=== PATIENT | female | born 1955 | race American Indian/Alaskan Native ===

== ENCOUNTER 2021-07-02 14:55 | Inpatient (IN) | payer SELFPAY ==
[2021-07-02] MEDS ORDERED: dexAMETHasone 20 MG/5 ML VIAL IV ONE (16:46)
--- NOTE | 2021-07-02 17:05 | Emergency Department Report ---
HPI - General Chief Complaint: Nausea/Vomiting/Diarrhea Time Seen by Provider: 07/02/21 16:34 - HPI HPI: Room 36 Patient is a 65-year-old female present with a chief complaint of cough and shortness of breath. The patient states for the past 5 days she has had a cough occasionally productive of brown sputum and shortness of breath. Patient mitts to body aches and rhinorrhea. Patient denies nausea/vomiting. Patient admits to subjective fever and complains of weakness with decreased p.o. for the last 2 days secondary to poor appetite. The patient states she was not vaccinated against COVID ED Past Medical Hx - Past Medical History Hx Hypertension: Yes - Surgical History Past Surgical History?: No - Family History Family history: no significant - Social History Smoking Status: Former Smoker (None for over 20 years) Substance Use Type: None (Denies illicit drug use) - Medications Home Medications: Home Medications Medication Instructions Recorded Confirmed Last Taken Type Cetirizine HCl 10 mg PO BID 11/23/19 11/23/19 Unknown History Ibuprofen [Motrin] 800 mg PO BID 11/23/19 11/23/19 Unknown History Quetiapine Fumarate [SEROquel] 50 mg PO BID #60 tab 11/23/19 Unknown Rx amLODIPine 10 mg PO DAILY 11/23/19 11/23/19 Unknown History traZODone [Desyrel] 50 mg PO QHS #30 tab 11/23/19 Unknown Rx ED Review of Systems ROS: Stated complaint: ABD PAIN Other details as noted in HPI Constitutional: fever Eyes: denies: eye pain ENT: denies: throat pain Respiratory: cough, shortness of breath Cardiovascular: denies: chest pain Endocrine: no symptoms reported Gastrointestinal: denies: abdominal pain, nausea, vomiting Genitourinary: denies: dysuria Musculoskeletal: myalgia Neurological: denies: headache Physical Exam - Physical Exam Vital Signs: Vital Signs 07/02/21 16:10 Temperature 98 F Pulse Rate 71 Respiratory 24 Rate Blood Pressure 110/63 [Right] O2 Sat by Pulse 88 Oximetry Physical Exam: GENERAL: The patient is well-developed well-nourished female lying on stretcher using cell phone not appearing to be in acute distress. [] HEENT: Normocephalic. Atraumatic. Extraocular motions are intact. Patient has moist mucous membranes. NECK: Supple. Trachea CHEST/LUNGS: Clear to auscultation. There is no respiratory distress noted. HEART/CARDIOVASCULAR: Regular. There is no tachycardia. There is no gallop rub or murmur. ABDOMEN: Abdomen is soft, nontender. Patient has normal bowel sounds. There is no abdominal distention. SKIN: There is no rash. There is no edema. There is no diaphoresis. NEURO: The patient is awake, alert, and oriented. The patient is cooperative. The patient has no focal neurologic deficits. The patient has normal speech. GCS 15 MUSCULOSKELETAL: There is no evidence of acute injury. ED Course Vital Signs 07/02/21 16:10 Temperature 98 F Pulse Rate 71 Respiratory 24 Rate Blood Pressure 110/63 [Right] O2 Sat by Pulse 88 Oximetry ED Medical Decision Making - Lab Data Result diagrams: 07/02/21 17:03 07/02/21 17:03 Laboratory Tests 07/02/21 07/02/21 07/02/21 17:03 17:03 17:03 WBC 5.4 RBC 4.52 Hgb 13.5 Hct 40.6 MCV 90 MCH 30 MCHC 33 RDW 14.2 Plt Count 234 Lymph % (Auto) 21.2 [place] % (Auto) 5.4 Eos % (Auto) 0.0 Baso % (Auto) 0.6 Lymph # (Auto) 1.1 L [place] # (Auto) 0.3 Eos # (Auto) 0.0 Baso # (Auto) 0.0 Seg Neutrophils % 72.8 H Seg Neutrophils # 3.9 D-Dimer 574.72 H Sodium Potassium Chloride Carbon Dioxide Anion Gap BUN Creatinine Estimated GFR BUN/Creatinine Ratio Glucose Lactic Acid Calcium Total Bilirubin AST ALT Alkaline Phosphatase Lactate Dehydrogenase Total Creatine Kinase 360 H CK-MB (CK-2) < 1.0 CK-MB (CK-2) Rel Index 0.2 Troponin T C-Reactive Protein Total Protein Albumin Albumin/Globulin Ratio 07/02/21 07/02/21 17:03 17:03 WBC RBC Hgb Hct MCV MCH MCHC RDW Plt Count Lymph % (Auto) [place] % (Auto) Eos % (Auto) Baso % (Auto) Lymph # (Auto) [place] # (Auto) Eos # (Auto) Baso # (Auto) Seg Neutrophils % Seg Neutrophils # D-Dimer Sodium 136 L Potassium 3.2 L Chloride 99.4 Carbon Dioxide 19 L Anion Gap 21 BUN 20 H Creatinine 1.3 H Estimated GFR 50 BUN/Creatinine Ratio 15 Glucose 125 H Lactic Acid 1.10 Calcium 8.7 Total Bilirubin 0.40 AST 40 ALT 27 Alkaline Phosphatase 82 Lactate Dehydrogenase 452 H Total Creatine Kinase CK-MB (CK-2) CK-MB (CK-2) Rel Index Troponin T 0.012 C-Reactive Protein 8.70 H Total Protein 7.5 Albumin 3.9 Albumin/Globulin Ratio 1.1 - EKG Data -: EKG Interpreted by Me EKG shows normal: sinus rhythm Rate: normal (67 bpm) - EKG Data When compared to previous EKG there are: changes noted Interpretation: nonspecific ST-T wave daniel (T wave inversions in leads V3, V4, V5, V6. Biphasic T wave in lead III) - Radiology Data Radiology results: image reviewed (Chest x-ray) interpreted by me: Chest [id number] lower lobe patchy infiltrates. No pneumothorax - Differential Diagnosis COVID pneumonia, pneumonia, Critical care attestation.: If time is entered above; I have spent that time in minutes in the direct care of this critically ill patient, excluding procedure time. ED Disposition Clinical Impression: Suspected COVID-19 virus infection, Hypoxia Disposition: ADMITTED INPATIENT Is pt being admited?: Yes Does the pt Need Aspirin: No Condition: Fair Referrals: PRIMARY CARE, [Primary Care Provider] - 3-5 Days Time of Disposition: 18:01 (Hospitalist called (Dr. Raman))
[2021-07-02 17:28] LABS: Basophils % (Auto) 0.6 % (0.0-1.8); Hematocrit 40.6 % (30.3-42.9); Hemoglobin 13.5 gm/dl (10.1-14.3); Lymphocytes # (Auto) 1.1 K/mm3 (1.2-5.4); Lymphocytes % (Auto) 21.2 % (13.4-35.0); Mean Corpuscular HGB Conc 33 % (30-34); Mean Corpuscular Volume 90 fl (79-97); Monocytes # (Auto) 0.3 K/mm3 (0.0-0.8); Monocytes % (Auto) 5.4 % (0.0-7.3); Platelet Count 234 K/mm3 (140-440); Red Blood Count 4.52 M/mm3 (3.65-5.03); Red Cell Distribution Width 14.2 % (13.2-15.2)
--- NOTE | 2021-07-02 17:28 | XRay Report ---
CHEST 1 VIEW 07/02/2021 4:51 PM INDICATION / CLINICAL INFORMATION: Cough, shortness of breath, hypoxia. COMPARISON: 11/22/2019 FINDINGS: SUPPORT DEVICES: None. HEART / MEDIASTINUM: No significant abnormality. LUNGS / PLEURA: Pneumonia left mid zone and right base. No pneumothorax. ADDITIONAL FINDINGS: No significant additional findings. IMPRESSION: Bilateral pneumonia. Signer Name: Keith Pillai MD Signed: 07/02/2021 5:24 PM Workstation Name: [id number]
[2021-07-02 17:53] LABS: Creatine Kinase MB < 1.0 ng/mL (0.0-4.0)
[2021-07-02 17:54] LABS: Albumin 3.9 g/dL (3.9-5); C-Reactive Protein 8.7 mg/dL (0.00-1.30); Calcium 8.7 mg/dL (8.4-10.2)
[2021-07-02] MEDS ORDERED: POTASSIUM CHLORIDE ER 20 MEQ TAB PO ONE (18:00)
[2021-07-02 23:09] LABS: Bacteria,Urine 1+ /HPF (Negative); Bilirubin,Urine NEG (Negative); Blood,Urine SM (Negative); Color,Urine Amber (Yellow); Hyaline Casts,Urine 29 /LPF; Mucus,Urine 2+ /HPF
[2021-07-02 23:11] LABS: Protein,Urine >500 mg/dL (Negative)
--- NOTE | 2021-07-03 00:16 | History and Physical Report ---
History of Present Illness Date of examination: 07/02/21 Date of admission: 07/02/21 19:00 Chief complaint: Cough and shortness of breath for 5 days History of present illness: 55-year-old female with chief complaint of cough and shortness of breath for past 5 days. Patient has been having cough and shortness of breath for the last 5 days cough productive of mucoid to brown sputum. Patient also admits to body aches and runny nose. No nausea or vomiting. Patient also has Subjective fever and malaise and decreased p.o. intake for the last 2 days secondary to poor appetite. Patient is not vaccinated against COVID. No known exposure to any sick contacts. Patient is oxygen saturations were around 88% on room air in the emergency room. Improved with oxygen. - Past Medical History --Hypertension: Yes - Surgical History --Past Surgical History?: No - Family History --Family history: no significant - Social History --Smoking Status: Former Smoker (None for over 20 years) --Substance Use Type: None (Denies illicit drug use) - Medications Home Medications: Home Medications Medication Instructions Recorded Confirmed Last Taken Type Cetirizine HCl 10 mg PO BID 11/23/19 11/23/19 Unknown History Ibuprofen [Motrin] 800 mg PO BID 11/23/19 11/23/19 Unknown History Quetiapine Fumarate [SEROquel] 50 mg PO BID #60 tab 11/23/19 Unknown Rx amLODIPine 10 mg PO DAILY 11/23/19 11/23/19 Unknown History traZODone [Desyrel] 50 mg PO QHS #30 tab 11/23/19 Unknown Rx Review of Systems ROS: Stated complaint: ABD PAIN Other details as noted in HPI Constitutional: fever Eyes: denies: eye pain ENT: denies: throat pain Respiratory: cough, shortness of breath Cardiovascular: denies: chest pain Endocrine: no symptoms reported Gastrointestinal: denies: abdominal pain, nausea, vomiting Genitourinary: denies: dysuria Musculoskeletal: myalgia Neurological: denies: headache Medications and Allergies Allergies Allergy/AdvReac Type Severity Reaction Status Date / Time Penicillins Allergy Rash Verified 07/02/21 16:07 Home Medications Medication Instructions Recorded Confirmed Last Taken Type Cetirizine HCl 10 mg PO BID 11/23/19 11/23/19 Unknown History Ibuprofen [Motrin] 800 mg PO BID 11/23/19 11/23/19 Unknown History Quetiapine Fumarate [SEROquel] 50 mg PO BID #60 tab 11/23/19 Unknown Rx amLODIPine 10 mg PO DAILY 11/23/19 11/23/19 Unknown History traZODone [Desyrel] 50 mg PO QHS #30 tab 11/23/19 Unknown Rx Exam - Constitutional Vitals: Temp Pulse Resp BP Pulse Ox 98 F 71 20 137/77 97 07/02/21 16:10 07/02/21 22:15 07/02/21 22:15 07/02/21 22:15 07/02/21 22:15 General appearance: Present: mild distress, well-nourished - EENT Eyes: Present: PERRL ENT: hearing intact, clear oral mucosa - Neck Neck: Present: supple, normal ROM - Respiratory Respiratory effort: normal Respiratory: bilateral: CTA, rhonchi (Scattered) - Cardiovascular Heart rate: 78 Rhythm: regular Heart Sounds: Present: S1 & S2. Absent: rub, click - Extremities Extremities: no ischemia, pulses intact, pulses symmetrical, No edema Peripheral Pulses: within normal limits - Abdominal General gastrointestinal: Present: soft, non-tender, non-distended, normal bowel sounds Female genitourinary: Present: normal - Rectal Rectal Exam: deferred - Integumentary Integumentary: Present: clear, warm, dry - Musculoskeletal Musculoskeletal: gait normal, strength equal bilaterally - Psychiatric Psychiatric: appropriate mood/affect, intact judgment & insight - Neurologic Neurologic: CNII-XII intact, moves all extremities - Allied Health Allied health notes reviewed: nursing, case management HEART Score - HEART Score Troponin: Troponin T 0.012 ng/mL (0.00-0.029) 07/02/21 17:03 Results - Labs CBC & Chem 7: 07/02/21 17:03 07/03/21 00:52 Labs: Laboratory Last Values WBC 5.4 K/mm3 (4.5-11.0) 07/02/21 17:03 RBC 4.52 M/mm3 (3.65-5.03) 07/02/21 17:03 Hgb 13.5 gm/dl (10.1-14.3) 07/02/21 17:03 Hct 40.6 % (30.3-42.9) 07/02/21 17:03 MCV 90 fl (79-97) 07/02/21 17:03 MCH 30 pg (28-32) 07/02/21 17:03 MCHC 33 % (30-34) 07/02/21 17:03 RDW 14.2 % (13.2-15.2) 07/02/21 17:03 Plt Count 234 K/mm3 (140-440) 07/02/21 17:03 Lymph % (Auto) 21.2 % (13.4-35.0) 07/02/21 17:03 [place] % (Auto) 5.4 % (0.0-7.3) 07/02/21 17:03 Eos % (Auto) 0.0 % (0.0-4.3) 07/02/21 17:03 Baso % (Auto) 0.6 % (0.0-1.8) 07/02/21 17:03 Lymph # (Auto) 1.1 K/mm3 (1.2-5.4) L 07/02/21 17:03 [place] # (Auto) 0.3 K/mm3 (0.0-0.8) 07/02/21 17:03 Eos # (Auto) 0.0 K/mm3 (0.0-0.4) 07/02/21 17:03 Baso # (Auto) 0.0 K/mm3 (0.0-0.1) 07/02/21 17:03 Seg Neutrophils % 72.8 % (40.0-70.0) H 07/02/21 17:03 Seg Neutrophils # 3.9 K/mm3 (1.8-7.7) 07/02/21 17:03 D-Dimer 574.72 ng/mlDDU (0-234) H 07/02/21 17:03 Sodium 136 mmol/L (137-145) L 07/02/21 17:03 Potassium 3.2 mmol/L (3.6-5.0) L 07/02/21 17:03 Chloride 99.4 mmol/L (98-107) 07/02/21 17:03 Carbon Dioxide 19 mmol/L (22-30) L 07/02/21 17:03 Anion Gap 21 mmol/L 07/02/21 17:03 BUN 20 mg/dL (7-17) H 07/02/21 17:03 Creatinine 1.3 mg/dL (0.6-1.2) H 07/02/21 17:03 Estimated GFR 50 ml/min 07/02/21 17:03 BUN/Creatinine Ratio 15 % 07/02/21 17:03 Glucose 125 mg/dL (65-100) H 07/02/21 17:03 Lactic Acid 1.10 mmol/L (0.7-2.0) 07/02/21 17:03 Calcium 8.7 mg/dL (8.4-10.2) 07/02/21 17:03 Total Bilirubin 0.40 mg/dL (0.1-1.2) 07/02/21 17:03 AST 40 units/L (5-40) 07/02/21 17:03 ALT 27 units/L (7-56) 07/02/21 17:03 Alkaline Phosphatase 82 units/L (35-129) 07/02/21 17:03 Lactate Dehydrogenase 452 units/L (91-180) H 07/02/21 17:03 Total Creatine Kinase 360 units/L (30-135) H 07/02/21 17:03 CK-MB (CK-2) < 1.0 ng/mL (0.0-4.0) 07/02/21 17:03 CK-MB (CK-2) Rel Index 0.2 (0-4) 07/02/21 17:03 Troponin T 0.012 ng/mL (0.00-0.029) 07/02/21 17:03 C-Reactive Protein 8.70 mg/dL (0.00-1.30) H 07/02/21 17:03 Total Protein 7.5 g/dL (6.3-8.2) 07/02/21 17:03 Albumin 3.9 g/dL (3.9-5) 07/02/21 17:03 Albumin/Globulin Ratio 1.1 % 07/02/21 17:03 Urine Color [place] (Yellow) 07/02/21 22:35 Urine Turbidity Slightly-cloudy (Clear) 07/02/21 22:35 Urine pH 6.0 (5.0-7.0) 07/02/21 22:35 Ur Specific [place] 1.019 (1.003-1.030) 07/02/21 22:35 Urine Protein >500 mg/dL (Negative) 07/02/21 22:35 Urine Glucose (UA) Neg mg/dL (Negative) 07/02/21 22:35 Urine Ketones 20 mg/dL (Negative) 07/02/21 22:35 Urine Blood Sm (Negative) 07/02/21 22:35 Urine Nitrite Neg (Negative) 07/02/21 22:35 Urine Bilirubin Neg (Negative) 07/02/21 22:35 Urine Urobilinogen 2.0 mg/dL (<2.0) 07/02/21 22:35 Ur Leukocyte Esterase Sm (Negative) 07/02/21 22:35 Urine WBC (Auto) 50.0 /HPF (0.0-6.0) H 07/02/21 22:35 Urine RBC (Auto) 11.0 /HPF (0.0-6.0) 07/02/21 22:35 U Epithel Cells (Auto) 46.0 /HPF (0-13.0) H 07/02/21 22:35 Urine Bacteria (Auto) 1+ /HPF (Negative) 07/02/21 22:35 Hyaline Casts 29 /LPF 07/02/21 22:35 Urine Mucus 2+ /HPF 07/02/21 22:35 Short CBC 07/02/21 Range/Units 17:03 WBC 5.4 (4.5-11.0) K/mm3 Hgb 13.5 (10.1-14.3) gm/dl Hct 40.6 (30.3-42.9) % Plt Count 234 (140-440) K/mm3 BMP 07/02/21 07/03/21 17:03 00:52 Sodium 136 L 138 Potassium 3.2 L 4.5 D Chloride 99.4 102.9 Carbon Dioxide 19 L 19 L BUN 20 H 24 H Creatinine 1.3 H 1.4 H Glucose 125 H 181 H Calcium 8.7 8.6 Cardiac Enzymes 07/02/21 07/02/21 Range/Units 17:03 17:03 Total Creatine Kinase 360 H (30-135) units/L CK-MB (CK-2) < 1.0 (0.0-4.0) ng/mL Troponin T 0.012 (0.00-0.029) ng/mL Liver Function 07/02/21 Range/Units 17:03 Total Bilirubin 0.40 (0.1-1.2) mg/dL AST 40 (5-40) units/L ALT 27 (7-56) units/L Alkaline Phosphatase 82 (35-129) units/L Albumin 3.9 (3.9-5) g/dL Urine 07/02/21 Range/Units 22:35 Urine Color [place] (Yellow) Urine pH 6.0 (5.0-7.0) Ur Specific [place] 1.019 (1.003-1.030) Urine Protein >500 (Negative) mg/dL Urine Glucose (UA) Neg (Negative) mg/dL Microbiology: Microbiology 07/02/21 17:22 Peripheral/Venous Blood Culture - Preliminary Culture in Progress 07/02/21 17:03 Peripheral/Venous Blood Culture - Preliminary Culture in Progress - Imaging and Cardiology Chest x-ray: report reviewed Imaging and Cardiology: Chest x-ray Bilateral pneumonia Assessment and Plan Advance Directives: Yes (Full code) VTE prophylaxis?: Chemical Plan of care discussed with patient/family: Yes - Patient Problems (1) Acute respiratory failure with hypoxemia Current Visit: Yes Status: Acute Plan to address problem: Patient is hypoxic on room air Improved with oxygen supplementation Adjust oxygen requirements as necessary Rule out COVID-pneumonia (2) Systemic inflammatory response syndrome Current Visit: Yes Status: Acute Plan to address problem: All inflammatory markers including D-dimer, ferritin, CRP and LDH are elevated Clinical picture consistent with systemic inflammatory response syndrome (3) Bilateral pneumonia Current Visit: Yes Status: Acute Plan to address problem: Treat as community-acquired pneumonia IV ceftriaxone and IV Zithromax IV Decadron 8 mg every 24 (4) Suspected COVID-19 virus infection Current Visit: Yes Status: Acute Plan to address problem: Coronavirus PCR in a.m. IV Decadron for now ID consult if necessary (5) Hypertension Current Visit: Yes Status: Chronic Qualifiers: Hypertension type: primary hypertension Qualified Code(s): I10 - Essential (primary) hypertension Plan to address problem: Continue amlodipine and adjust medications as necessary (6) Schizophrenia Current Visit: No Status: Chronic Qualifiers: Schizophrenia type: unspecified Qualified Code(s): F20.9 - Schizophrenia, unspecified Plan to address problem: Continue Seroquel (7) Hypokalemia Current Visit: Yes Status: Acute Plan to address problem: Supplemented recheck potassium level (8) LILLIE (acute kidney injury) Current Visit: Yes Status: Acute Plan to address problem: IV fluids for 12 to 18 hours Vasomotor nephropathy (9) DVT prophylaxis Current Visit: Yes Status: Acute Plan to address problem: On anticoagulation and GI prophylaxis (10) Advance care planning Current Visit: Yes Status: Acute Plan to address problem: Disease education conducted, care plan discussed, diagnosis discussed, prognosis discussed. Patient is full code. Patient acknowledges understanding and agreement with care plan +30 minutes
[2021-07-03] MEDS ORDERED: ONDANSETRON 4 MG/2 ML INJ IV PRN (00:33)
[2021-07-03] MEDS ORDERED: ACETAMINOPHEN 325 MG TAB PO PRN (00:33)
[2021-07-03] MEDS ORDERED: oxyCODONE /ACETAMINOPHEN 5-325MG TAB PO PRN (00:34)
[2021-07-03] MEDS ORDERED: METOCLOPRAMIDE 10 MG/2 ML INJ IV PRN (00:34)
[2021-07-03] MEDS ORDERED: SODIUM CHLORIDE 0.9% 1000 ML 1,000 ML IV SCH ×2 (00:45→07:30)
[2021-07-03 01:33] LABS: Calcium 8.6 mg/dL (8.4-10.2)
[2021-07-03] MEDS: cefTRIAXone/NS 2 GM/100 ML 2 GM/100 ML BAG IV SCH ×2 (02:22→11:46)
[2021-07-03] MEDS: AZITHROMYCIN/NS 500 MG/250 ML 500 MG/250 ML BAG IV SCH ×2 (03:46→10:44)
[2021-07-03] MEDS ORDERED: NON-FORMULARY EACH (Amlodipine 10 MG) PO SCH (10:00)
[2021-07-03] MEDS ORDERED: NON-FORMULARY EACH (Quetiapine Fumarate [Seroquel] 50 MG Tablet) PO SCH (10:00)
[2021-07-03] MEDS ORDERED: NON-FORMULARY EACH (Cetirizine Hcl 10 MG) PO SCH (10:00)
[2021-07-03] MEDS: CETIRIZINE 10 MG TAB PO SCH (10:35)
[2021-07-03] MEDS: dexAMETHasone 4 MG/ML VIAL IV SCH (10:43)
[2021-07-03] MEDS: QUEtiapine 25 MG TAB PO SCH (10:44)
[2021-07-03] MEDS: FAMOTIDINE 20 MG TAB PO SCH (10:44)
[2021-07-03] MEDS: amLODIPine 10 MG TAB PO SCH (10:44)
[2021-07-03] MEDS: ENOXAPARIN 40 MG/0.4 ML INJ SUB-Q SCH (10:45)
--- NOTE | 2021-07-03 18:25 | Progress Note ---
Assessment and Plan Assessment and plan: --COVID-19 positive/positive salcedo PCR test Contact and respiratory isolation Patient is on 2 L of nasal cannula oxygen Inflammatory markers, steroid and no remdesivir due to LILLIE Consult ID --PUI/high suspicion for COVID-19 Isolation precautions Salcedo PCR test requested Continue oxygen support - Acute respiratory failure with hypoxemia Current Visit: Yes Status: Acute Patient is hypoxic on room air Improved with oxygen supplementation Adjust oxygen requirements as necessary Rule out COVID-pneumonia --Systemic inflammatory response syndrome Current Visit: Yes Status: Acute All inflammatory markers including D-dimer, ferritin, CRP and LDH are elevated Clinical picture consistent with systemic inflammatory response syndrome --bilateral pneumonia Current Visit: Yes Status: Acute Treat as community-acquired pneumonia IV ceftriaxone and IV Zithromax IV Decadron 8 mg every 24 -- Suspected COVID-19 virus infection Current Visit: Yes Status: Acute Coronavirus PCR in a.m. IV Decadron for now ID consult if necessary -- Hypertension Current Visit: Yes Status: Chronic Continue amlodipine and adjust medications as necessary --Schizophrenia Current Visit: No Status: Chronic Continue Seroquel --Hypokalemia Current Visit: Yes Status: Acute Supplemented recheck potassium level --LILLIE (acute kidney injury) Current Visit: Yes Status: Acute IV fluids for 12 to 18 hours Vasomotor nephropathy --Obesity; BMI 33.8 Current Visit: Yes Status: Chronic Advised dietary modification, exercise as tolerated Weight reduction when medically stable Patient verbalized understanding - DVT prophylaxis Current Visit: Yes Status: Acute On anticoagulation and GI prophylaxis Monitor patient and adjust management as needed Plan of care reviewed with the patient and her nurse History Interval history: I have seen and examined the patient in ER awaiting bed assignment Patient's chart and medications reviewed Isolation precautions and PPE protocols strictly followed Patient is PUI salcedo PCR test is sent Patient feels short of breath, obese, Hospitalist Physical - Constitutional Vitals: Temp Pulse Resp BP Pulse Ox 98 F 61 24 116/71 92 07/02/21 16:10 07/03/21 11:01 07/03/21 17:31 07/03/21 17:31 07/03/21 17:31 General appearance: Present: mild distress, well-nourished - EENT Eyes: Present: PERRL, EOM intact - Neck Neck: Present: supple, normal ROM - Respiratory Respiratory effort: normal Respiratory: bilateral: diminished, negative: rales, rhonchi, wheezing - Cardiovascular Rhythm: regular Heart Sounds: Present: S1 & S2 - Extremities Extremities: no ischemia, No edema - Abdominal General gastrointestinal: soft, non-tender, normal bowel sounds - Integumentary Integumentary: Present: clear, warm - Psychiatric Psychiatric: appropriate mood/affect, cooperative - Neurologic Neurologic: CNII-XII intact, moves all extremities HEART Score - HEART Score Troponin: Troponin T 0.012 ng/mL (0.00-0.029) 07/02/21 17:03 Results - Labs CBC & Chem 7: 07/02/21 17:03 07/03/21 00:52 Labs: Laboratory Last Values WBC 5.4 K/mm3 (4.5-11.0) 07/02/21 17:03 RBC 4.52 M/mm3 (3.65-5.03) 07/02/21 17:03 Hgb 13.5 gm/dl (10.1-14.3) 07/02/21 17:03 Hct 40.6 % (30.3-42.9) 07/02/21 17:03 MCV 90 fl (79-97) 07/02/21 17:03 MCH 30 pg (28-32) 07/02/21 17:03 MCHC 33 % (30-34) 07/02/21 17:03 RDW 14.2 % (13.2-15.2) 07/02/21 17:03 Plt Count 234 K/mm3 (140-440) 07/02/21 17:03 Lymph % (Auto) 21.2 % (13.4-35.0) 07/02/21 17:03 [place] % (Auto) 5.4 % (0.0-7.3) 07/02/21 17:03 Eos % (Auto) 0.0 % (0.0-4.3) 07/02/21 17:03 Baso % (Auto) 0.6 % (0.0-1.8) 07/02/21 17:03 Lymph # (Auto) 1.1 K/mm3 (1.2-5.4) L 07/02/21 17:03 [place] # (Auto) 0.3 K/mm3 (0.0-0.8) 07/02/21 17:03 Eos # (Auto) 0.0 K/mm3 (0.0-0.4) 07/02/21 17:03 Baso # (Auto) 0.0 K/mm3 (0.0-0.1) 07/02/21 17:03 Seg Neutrophils % 72.8 % (40.0-70.0) H 07/02/21 17:03 Seg Neutrophils # 3.9 K/mm3 (1.8-7.7) 07/02/21 17:03 D-Dimer 574.72 ng/mlDDU (0-234) H 07/02/21 17:03 Sodium 138 mmol/L (137-145) 07/03/21 00:52 Potassium 4.5 mmol/L (3.6-5.0) D 07/03/21 00:52 Chloride 102.9 mmol/L (98-107) 07/03/21 00:52 Carbon Dioxide 19 mmol/L (22-30) L 07/03/21 00:52 Anion Gap 21 mmol/L 07/03/21 00:52 BUN 24 mg/dL (7-17) H 07/03/21 00:52 Creatinine 1.4 mg/dL (0.6-1.2) H 07/03/21 00:52 Estimated GFR 46 ml/min 07/03/21 00:52 BUN/Creatinine Ratio 17 % 07/03/21 00:52 Glucose 181 mg/dL (65-100) H 07/03/21 00:52 Lactic Acid 1.10 mmol/L (0.7-2.0) 07/02/21 17:03 Calcium 8.6 mg/dL (8.4-10.2) 07/03/21 00:52 Total Bilirubin 0.40 mg/dL (0.1-1.2) 07/02/21 17:03 AST 40 units/L (5-40) 07/02/21 17:03 ALT 27 units/L (7-56) 07/02/21 17:03 Alkaline Phosphatase 82 units/L (35-129) 07/02/21 17:03 Lactate Dehydrogenase 452 units/L (91-180) H 07/02/21 17:03 Total Creatine Kinase 360 units/L (30-135) H 07/02/21 17:03 CK-MB (CK-2) < 1.0 ng/mL (0.0-4.0) 07/02/21 17:03 CK-MB (CK-2) Rel Index 0.2 (0-4) 07/02/21 17:03 Troponin T 0.012 ng/mL (0.00-0.029) 07/02/21 17:03 C-Reactive Protein 8.70 mg/dL (0.00-1.30) H 07/02/21 17:03 Total Protein 7.5 g/dL (6.3-8.2) 07/02/21 17:03 Albumin 3.9 g/dL (3.9-5) 07/02/21 17:03 Albumin/Globulin Ratio 1.1 % 07/02/21 17:03 Procalcitonin 0.09 ng/mL (<0.15) 07/02/21 17:03 Urine Color [place] (Yellow) 07/02/21 22:35 Urine Turbidity Slightly-cloudy (Clear) 07/02/21 22:35 Urine pH 6.0 (5.0-7.0) 07/02/21 22:35 Ur Specific [place] 1.019 (1.003-1.030) 07/02/21 22:35 Urine Protein >500 mg/dL (Negative) 07/02/21 22:35 Urine Glucose (UA) Neg mg/dL (Negative) 07/02/21 22: Urine Ketones 20 mg/dL (Negative) 07/02/21 22:35 Urine Blood Sm (Negative) 07/02/21 22:35 Urine Nitrite Neg (Negative) 07/02/21 22: Urine Bilirubin Neg (Negative) 07/02/21 22:35 Urine Urobilinogen 2.0 mg/dL (<2.0) 07/02/21 22:35 Ur Leukocyte Esterase Sm (Negative) 07/02/21 22:35 Urine WBC (Auto) 50.0 /HPF (0.0-6.0) H 07/02/21 22:35 Urine RBC (Auto) 11.0 /HPF (0.0-6.0) 07/02/21 22:35 U Epithel Cells (Auto) 46.0 /HPF (0-13.0) H 07/02/21 22:35 Urine Bacteria (Auto) 1+ /HPF (Negative) 01/09/22 22:35 Hyaline Casts 29 /LPF 07/02/21 22:35 Urine Mucus 2+ /HPF 07/02/21 22:35 Coronavirus (PCR) Positive (Negative) A 07/03/21 10:21 Microbiology: Microbiology 07/02/21 17:22 Peripheral/Venous Blood Culture - Preliminary Culture in Progress 07/02/21 17:03 Peripheral/Venous Blood Culture - Preliminary Culture in Progress Active Medications - Current Medications Current Medications: Generic Name Dose Route Start Last Admin Trade Name Freq PRN Reason Stop Dose Admin Acetaminophen 650 mg 07/03/21 00:33 Acetaminophen 325 Mg Tab PO Q4H PRN Pain MILD(1-3)/Fever >100.5/CARLSON Amlodipine Besylate 10 mg 07/03/21 10:00 07/03/21 10:44 Amlodipine 10 Mg Tab PO 10 mg DAILY LUPILLO Administration Azithromycin 500 mg 07/04/21 10:00 Azithromycin 250 Mg Tab PO 07/06/21 10:01 QDAY LUPILLO Protocol Cetirizine HCl 10 mg 07/03/21 10:00 07/03/21 10:35 Cetirizine 10 Mg Tab PO 10 mg BID LUPILLO Administration Dexamethasone 8 mg 07/03/21 10:00 07/03/21 10:43 Dexamethasone 4 Mg/Ml Vial IV 8 mg Q24HR LUPILLO Administration Enoxaparin Sodium 40 mg 07/03/21 10:00 07/03/21 10:45 Enoxaparin 40 Mg/0.4 Ml Inj SUB-Q 40 mg QDAY LUPILLO Administration Famotidine 20 mg 07/03/21 10:00 07/03/21 10:44 Famotidine 20 Mg Tab PO 20 mg BID LUPILOL Administration Sodium Chloride 1,000 mls @ 75 mls/hr 07/03/21 07:30 Nacl 0.9% 1000 Ml IV 07/04/21 04:00 DIRECT LUPILLO Ceftriaxone Sodium 2 gm in 100 mls @ 200 mls/hr 07/04/21 02:00 Rocephin/Ns 2 Gm/100 Ml IV Q24H LUPILLO Protocol Metoclopramide HCl 10 mg 07/03/21 00:34 Metoclopramide 10 Mg/2 Ml Inj IV Q6H PRN Nausea And Vomiting Ondansetron HCl 4 mg 07/03/21 00:33 Ondansetron 4 Mg/2 Ml Inj IV Q8H PRN Nausea And Vomiting Oxycodone/Acetaminophen 1 tab 07/03/21 00:34 Oxycodone /Acetaminophen 5-325mg Tab PO Q6H PRN Pain, Moderate (4-6) Quetiapine Fumarate 50 mg 07/03/21 10:00 07/03/21 10:44 Quetiapine 25 Mg Tab PO 50 mg BID LUPILLO Administration Sodium Chloride 10 ml 07/03/21 10:00 07/03/21 10:45 Sodium Chloride 0.9% 10 Ml Flush Syringe IV 10 ml BID LUPILLO Administration Sodium Chloride 10 ml 07/03/21 00:33 Sodium Chloride 0.9% 10 Ml Flush Syringe IV PRN PRN LINE FLUSH Trazodone HCl 50 mg 07/03/21 22:00 Trazodone 50 Mg Tab PO QHS LUPILLO
[2021-07-03] MEDS ORDERED: guaiFENesin DM 200/20 MG ORAL LIQD 10 ML PO PRN (18:28)
[2021-07-04] MEDS: traZODone 50 MG TAB PO SCH ×2 (04:36→23:56)
[2021-07-04] MEDS: CETIRIZINE 10 MG TAB PO SCH ×3 (04:36→23:55)
[2021-07-04] MEDS: FAMOTIDINE 20 MG TAB PO SCH ×3 (04:36→23:55)
[2021-07-04] MEDS: QUEtiapine 25 MG TAB PO SCH ×3 (04:37→23:56)
[2021-07-04 05:28] LABS: Basophils % (Auto) 0.4 % (0.0-1.8); Hematocrit 39.7 % (30.3-42.9); Lymphocytes # (Auto) 0.9 K/mm3 (1.2-5.4); Mean Corpuscular HGB Conc 33 % (30-34); Mean Corpuscular Volume 90 fl (79-97); Monocytes # (Auto) 0.5 K/mm3 (0.0-0.8); Monocytes % (Auto) 5.2 % (0.0-7.3); Platelet Count 262 K/mm3 (140-440); Red Blood Count 4.41 M/mm3 (3.65-5.03); Red Cell Distribution Width 14.3 % (13.2-15.2)
[2021-07-04 05:53] LABS: Alanine Aminotransferase 20 units/L (7-56); Albumin 3.6 g/dL (3.9-5); BUN/Creatinine Ratio 19; Blood Urea Nitrogen 19 mg/dL (7-17); Calcium 9.2 mg/dL (8.4-10.2); Hemolysis Index 4
[2021-07-04] MEDS: AZITHROMYCIN 250 MG TAB PO SCH (10:29)
[2021-07-04] MEDS: dexAMETHasone 4 MG/ML VIAL IV SCH (10:29)
[2021-07-04] MEDS: ENOXAPARIN 40 MG/0.4 ML INJ SUB-Q SCH (10:30)
[2021-07-04] MEDS: amLODIPine 10 MG TAB PO SCH (10:30)
--- NOTE | 2021-07-04 14:06 | Progress Note ---
Assessment and Plan Assessment and plan: --COVID-19 positive/positive salcedo PCR test Contact and respiratory isolation Patient is on 2 L of nasal cannula oxygen Inflammatory markers, steroid and no remdesivir due to LILLIE Consult ID --PUI/high suspicion for COVID-19 Isolation precautions Salcedo PCR test requested Continue oxygen support - Acute respiratory failure with hypoxemia Current Visit: Yes Status: Acute Patient is hypoxic on room air Improved with oxygen supplementation Adjust oxygen requirements as necessary Rule out COVID-pneumonia --Systemic inflammatory response syndrome Current Visit: Yes Status: Acute All inflammatory markers including D-dimer, ferritin, CRP and LDH are elevated Clinical picture consistent with systemic inflammatory response syndrome --bilateral pneumonia Current Visit: Yes Status: Acute Treat as community-acquired pneumonia IV ceftriaxone and IV Zithromax IV Decadron 8 mg every 24 -- Suspected COVID-19 virus infection Current Visit: Yes Status: Acute Coronavirus PCR in a.m. IV Decadron for now ID consult if necessary -- Hypertension Current Visit: Yes Status: Chronic Continue amlodipine and adjust medications as necessary --Schizophrenia Current Visit: No Status: Chronic Continue Seroquel --Hypokalemia Current Visit: Yes Status: Acute Supplemented recheck potassium level --LILLIE (acute kidney injury) Current Visit: Yes Status: Acute IV fluids for 12 to 18 hours Vasomotor nephropathy --Obesity; BMI 33.8 Current Visit: Yes Status: Chronic Advised dietary modification, exercise as tolerated Weight reduction when medically stable Patient verbalized understanding - DVT prophylaxis Current Visit: Yes Status: Acute On anticoagulation and GI prophylaxis Monitor patient and adjust management as needed Plan of care reviewed with the patient and her nurse 07/04/2021; patient is on 2 L of nasal cannula oxygen On steroids. No remdesivir patient has acute kidney injury, obese BMI 33.8 Wean as tolerated, home oxygen evaluation, prone positioning History Interval history: I have seen and examined the patient at the bedside this morning Isolation precautions and PPE protocol strictly followed per CDC guidelines Patient complains of mild shortness of breath Hospitalist Physical - Constitutional Vitals: Temp Pulse Resp BP Pulse Ox 98 F 74 12 122/64 89 07/02/21 16:10 07/04/21 10:30 07/03/21 23:31 07/04/21 10:30 07/04/21 06:45 General appearance: Present: mild distress, well-nourished - EENT Eyes: Present: PERRL, EOM intact - Neck Neck: Present: supple, normal ROM - Respiratory Respiratory effort: normal Respiratory: bilateral: diminished, rhonchi, negative: rales, wheezing - Cardiovascular Rhythm: regular Heart Sounds: Present: S1 & S2 - Extremities Extremities: no ischemia, No edema - Abdominal General gastrointestinal: soft, non-tender, non-distended, normal bowel sounds - Integumentary Integumentary: Present: clear, warm - Psychiatric Psychiatric: appropriate mood/affect, cooperative - Neurologic Neurologic: CNII-XII intact, moves all extremities HEART Score - HEART Score Troponin: Troponin T 0.012 ng/mL (0.00-0.029) 07/02/21 17:03 Results - Labs CBC & Chem 7: 07/04/21 04:52 07/04/21 04:52 Labs: Laboratory Last Values WBC 10.1 K/mm3 (4.5-11.0) 07/04/21 04:52 RBC 4.41 M/mm3 (3.65-5.03) 07/04/21 04:52 Hgb 13.0 gm/dl (10.1-14.3) 07/04/21 04:52 Hct 39.7 % (30.3-42.9) 07/04/21 04:52 MCV 90 fl (79-97) 07/04/21 04:52 MCH 30 pg (28-32) 07/04/21 04:52 MCHC 33 % (30-34) 07/04/21 04:52 RDW 14.3 % (13.2-15.2) 07/04/21 04:52 Plt Count 262 K/mm3 (140-440) 07/04/21 04:52 Lymph % (Auto) 9.0 % (13.4-35.0) L 07/04/21 04:52 [place] % (Auto) 5.2 % (0.0-7.3) 07/04/21 04:52 Eos % (Auto) 0.0 % (0.0-4.3) 07/04/21 04:52 Baso % (Auto) 0.4 % (0.0-1.8) 07/04/21 04:52 Lymph # (Auto) 0.9 K/mm3 (1.2-5.4) L 07/04/21 04:52 [place] # (Auto) 0.5 K/mm3 (0.0-0.8) 07/04/21 04:52 Eos # (Auto) 0.0 K/mm3 (0.0-0.4) 07/04/21 04:52 Baso # (Auto) 0.0 K/mm3 (0.0-0.1) 07/04/21 04:52 Seg Neutrophils % 85.4 % (40.0-70.0) H 07/04/21 04:52 Seg Neutrophils # 8.6 K/mm3 (1.8-7.7) H 07/04/21 04:52 D-Dimer 308.32 ng/mlDDU (0-234) H 07/04/21 04:52 Sodium 143 mmol/L (137-145) 07/04/21 04:52 Potassium 3.5 mmol/L (3.6-5.0) L D 07/04/21 04:52 Chloride 106.5 mmol/L (98-107) 07/04/21 04:52 Carbon Dioxide 22 mmol/L (22-30) 07/04/21 04:52 Anion Gap 18 mmol/L 07/04/21 04:52 BUN 19 mg/dL (7-17) H 07/04/21 04:52 Creatinine 1.0 mg/dL (0.6-1.2) 07/04/21 04:52 Estimated GFR > 60 ml/min 07/04/21 04:52 BUN/Creatinine Ratio 19 % 07/04/21 04:52 Glucose 116 mg/dL (65-100) H 07/04/21 04:52 Lactic Acid 1.10 mmol/L (0.7-2.0) 07/02/21 17:03 Calcium 9.2 mg/dL (8.4-10.2) 07/04/21 04:52 Ferritin 877.5 ng/mL (10.0-200.0) H 07/04/21 04:52 Total Bilirubin 0.30 mg/dL (0.1-1.2) 07/04/21 04:52 AST 27 units/L (5-40) 07/04/21 04:52 ALT 20 units/L (7-56) 07/04/21 04:52 Alkaline Phosphatase 71 units/L (35-129) 07/04/21 04:52 Lactate Dehydrogenase 408 units/L (91-180) H 07/04/21 04:52 Total Creatine Kinase 360 units/L (30-135) H 07/02/21 17:03 CK-MB (CK-2) < 1.0 ng/mL (0.0-4.0) 07/02/21 17:03 CK-MB (CK-2) Rel Index 0.2 (0-4) 07/02/21 17:03 Troponin T 0.012 ng/mL (0.00-0.029) 07/02/21 17:03 C-Reactive Protein 3.10 mg/dL (0.00-1.30) H 07/04/21 04:52 Total Protein 6.8 g/dL (6.3-8.2) 07/04/21 04:52 Albumin 3.6 g/dL (3.9-5) L 07/04/21 04:52 Albumin/Globulin Ratio 1.1 % 07/04/21 04:52 Procalcitonin 0.09 ng/mL (<0.15) 07/02/21 17:03 Urine Color [place] (Yellow) 07/02/21 22:35 Urine Turbidity Slightly-cloudy (Clear) 07/02/21 22:35 Urine pH 6.0 (5.0-7.0) 07/02/21 22:35 Ur Specific [place] 1.019 (1.003-1.030) 07/02/21 22:35 Urine Protein >500 mg/dL (Negative) 07/02/21 22:35 Urine Glucose (UA) Neg mg/dL (Negative) 07/02/21 22:35 Urine Ketones 20 mg/dL (Negative) 07/02/21 22:35 Urine Blood Sm (Negative) 07/02/21 22:35 Urine Nitrite Neg (Negative) 07/02/21 22:35 Urine Bilirubin Neg (Negative) 07/02/21 22:35 Urine Urobilinogen 2.0 mg/dL (<2.0) 07/02/21 22:35 Ur Leukocyte Esterase Sm (Negative) 07/02/21 22:35 Urine WBC (Auto) 50.0 /HPF (0.0-6.0) H 07/02/21 22:35 Urine RBC (Auto) 11.0 /HPF (0.0-6.0) 07/02/21 22:35 U Epithel Cells (Auto) 46.0 /HPF (0-13.0) H 07/02/21 22:35 Urine Bacteria (Auto) 1+ /HPF (Negative) 07/02/21 22:35 Hyaline Casts 29 /LPF 07/02/21 22:35 Urine Mucus 2+ /HPF 07/02/21 22:35 Coronavirus (PCR) Positive (Negative) A 07/03/21 10:21 Microbiology: Microbiology 07/02/21 22:35 Urine,Clean Catch Urine Culture - Preliminary NO GROWTH AFTER 24 HOURS 07/02/21 17:22 Peripheral/Venous Blood Culture - Preliminary NO GROWTH AFTER 24 HOURS 07/02/21 17:03 Peripheral/Venous Blood Culture - Preliminary NO GROWTH AFTER 24 HOURS Active Medications - Current Medications Current Medications: Generic Name Dose Route Start Last Admin Trade Name Freq PRN Reason Stop Dose Admin Acetaminophen 650 mg 07/03/21 00:33 Acetaminophen 325 Mg Tab PO Q4H PRN Pain MILD(1-3)/Fever >100.5/CARLSON Amlodipine Besylate 10 mg 07/03/21 10:00 07/04/21 10:30 Amlodipine 10 Mg Tab PO 10 mg DAILY LUPILLO Administration Azithromycin 500 mg 07/04/21 10:00 07/04/21 10:29 Azithromycin 250 Mg Tab PO 07/06/21 10:01 500 mg QDAY LUPILLO Administration Protocol Cetirizine HCl 10 mg 07/03/21 10:00 07/04/21 10:30 Cetirizine 10 Mg Tab PO 10 mg BID LUPILLO Administration Dexamethasone 8 mg 07/03/21 10:00 07/04/21 10:29 Dexamethasone 4 Mg/Ml Vial IV 07/11/21 10:01 8 mg Q24HR LUPILLO Administration Enoxaparin Sodium 40 mg 07/03/21 10:00 07/04/21 10:30 Enoxaparin 40 Mg/0.4 Ml Inj SUB-Q 40 mg QDAY LUPILLO Administration Famotidine 20 mg 07/03/21 10:00 07/04/21 10:30 Famotidine 20 Mg Tab PO 20 mg BID LUPILLO Administration Guaifenesin 10 ml 07/03/21 18:28 Guaifenesin Dm 200/20 Mg Oral Liqd 10 Ml PO Q4H PRN Cough Ceftriaxone Sodium 2 gm in 100 mls @ 200 mls/hr 07/04/21 02:00 Rocephin/Ns 2 Gm/100 Ml IV 07/07/21 02:29 Q24H LUPILLO Protocol Metoclopramide HCl 10 mg 07/03/21 00:34 Metoclopramide 10 Mg/2 Ml Inj IV Q6H PRN Nausea And Vomiting Ondansetron HCl 4 mg 07/03/21 00:33 Ondansetron 4 Mg/2 Ml Inj IV Q8H PRN Nausea And Vomiting Oxycodone/Acetaminophen 1 tab 07/03/21 00:34 Oxycodone /Acetaminophen 5-325mg Tab PO Q6H PRN Pain, Moderate (4-6) Quetiapine Fumarate 50 mg 07/03/21 10:00 07/04/21 10:29 Quetiapine 25 Mg Tab PO 50 mg BID LUPILLO Administration Sodium Chloride 10 ml 07/03/21 10:00 07/04/21 10:31 Sodium Chloride 0.9% 10 Ml Flush Syringe IV 10 ml BID LUPILLO Administration Sodium Chloride 10 ml 07/03/21 00:33 Sodium Chloride 0.9% 10 Ml Flush Syringe IV PRN PRN LINE FLUSH Trazodone HCl 50 mg 07/03/21 22:00 07/04/21 04:36 Trazodone 50 Mg Tab PO Not Given QHS LUPILLO
[2021-07-04] MEDS: cefTRIAXone/NS 2 GM/100 ML 2 GM/100 ML BAG IV SCH (23:53)
[2021-07-05] MEDS: cefTRIAXone/NS 2 GM/100 ML 2 GM/100 ML BAG IV SCH (02:56)
--- NOTE | 2021-07-05 08:53 | Electrocardiograph Report ---
[facility] Test Date: 2021-07-02 Test Time: 17:57:34 Pat Name: AJAY MANCUSO Department: Room: A367 Gender: F Med Dir: KYAW : 1955 Requested By: LLOYD ESTRADA Order Number: [id number] Reading MD: Srikanth Rose Measurements Intervals Newborn Rate: 67 P: 51 MA: 190 QRS: 3 QRSD: 81 T: 205 QT: 421 QTc: 447 Interpretive Statements Sinus rhythm Probable left atrial enlargement Consider anteroseptal infarct Nonspecific T wave abnormality No previous ECG available for comparison Electronically Signed On 07-05-2021 8:53:10 EST by Srikanth Rose
--- NOTE | 2021-07-05 08:56 | Progress Note ---
Assessment and Plan Assessment and plan: --COVID-19 positive/positive salcedo PCR test Contact and respiratory isolation Patient is on 2 L of nasal cannula oxygen Inflammatory markers, steroid and no remdesivir due to LILLIE Consult ID --PUI/high suspicion for COVID-19 Isolation precautions Salcedo PCR test requested Continue oxygen support - Acute respiratory failure with hypoxemia Current Visit: Yes Status: Acute Patient is hypoxic on room air Improved with oxygen supplementation Adjust oxygen requirements as necessary Rule out COVID-pneumonia --Systemic inflammatory response syndrome Current Visit: Yes Status: Acute All inflammatory markers including D-dimer, ferritin, CRP and LDH are elevated Clinical picture consistent with systemic inflammatory response syndrome --bilateral pneumonia Current Visit: Yes Status: Acute Treat as community-acquired pneumonia IV ceftriaxone and IV Zithromax IV Decadron 8 mg every 24 Procalcitonin is normal level DC IV antibiotics -- Suspected COVID-19 virus infection Current Visit: Yes Status: Acute Coronavirus PCR in a.m. IV Decadron for now ID consult if necessary -- Hypertension Current Visit: Yes Status: Chronic Continue amlodipine and adjust medications as necessary --Schizophrenia Current Visit: No Status: Chronic Continue Seroquel --Hypokalemia Current Visit: Yes Status: Acute Supplemented recheck potassium level --LILLIE (acute kidney injury) Current Visit: Yes Status: Acute IV fluids for 12 to 18 hours Vasomotor nephropathy --Obesity; BMI 33.8 Current Visit: Yes Status: Chronic Advised dietary modification, exercise as tolerated Weight reduction when medically stable Patient verbalized understanding - DVT prophylaxis Current Visit: Yes Status: Acute On anticoagulation and GI prophylaxis Monitor patient and adjust management as needed Plan of care reviewed with the patient and her nurse 07/04/2021; patient is on 2 L of nasal cannula oxygen On steroids. No remdesivir patient has acute kidney injury, obese BMI 33.8 Wean as tolerated, home oxygen evaluation, prone positioning 07/05/2021; walk test, possible discharge home tomorrow With home oxygen if needed, ambulate as tolerated History Interval history: I have seen and examined the patient at the bedside Isolation precautions PPE protocols followed per COVID-19 CDC guidelines Patient feels slightly better on 2 L of nasal cannula oxygen No new complaints Hospitalist Physical - Constitutional Vitals: Temp Pulse Resp BP Pulse Ox 100.0 F H 64 18 150/71 95 07/05/21 05:18 07/05/21 05:27 07/05/21 05:18 07/05/21 05:18 07/05/21 05:27 General appearance: Present: mild distress, well-nourished - EENT Eyes: Present: PERRL, EOM intact - Neck Neck: Present: supple, normal ROM - Respiratory Respiratory effort: normal Respiratory: bilateral: diminished, negative: rales, rhonchi, wheezing - Cardiovascular Rhythm: regular Heart Sounds: Present: S1 & S2 - Extremities Extremities: no ischemia, No edema - Abdominal General gastrointestinal: soft, non-tender, non-distended, normal bowel sounds - Integumentary Integumentary: Present: clear, warm - Psychiatric Psychiatric: appropriate mood/affect, cooperative - Neurologic Neurologic: CNII-XII intact, moves all extremities HEART Score - HEART Score Troponin: Troponin T 0.012 ng/mL (0.00-0.029) 07/02/21 17:03 Results - Labs CBC & Chem 7: 07/04/21 04:52 07/04/21 04:52 Labs: Laboratory Last Values WBC 10.1 K/mm3 (4.5-11.0) 07/04/21 04:52 RBC 4.41 M/mm3 (3.65-5.03) 07/04/21 04:52 Hgb 13.0 gm/dl (10.1-14.3) 07/04/21 04:52 Hct 39.7 % (30.3-42.9) 07/04/21 04:52 MCV 90 fl (79-97) 07/04/21 04:52 MCH 30 pg (28-32) 07/04/21 04:52 MCHC 33 % (30-34) 07/04/21 04:52 RDW 14.3 % (13.2-15.2) 07/04/21 04:52 Plt Count 262 K/mm3 (140-440) 07/04/21 04:52 Lymph % (Auto) 9.0 % (13.4-35.0) L 07/04/21 04:52 [place] % (Auto) 5.2 % (0.0-7.3) 07/04/21 04:52 Eos % (Auto) 0.0 % (0.0-4.3) 07/04/21 04:52 Baso % (Auto) 0.4 % (0.0-1.8) 07/04/21 04:52 Lymph # (Auto) 0.9 K/mm3 (1.2-5.4) L 07/04/21 04:52 [place] # (Auto) 0.5 K/mm3 (0.0-0.8) 07/04/21 04:52 Eos # (Auto) 0.0 K/mm3 (0.0-0.4) 07/04/21 04:52 Baso # (Auto) 0.0 K/mm3 (0.0-0.1) 07/04/21 04:52 Seg Neutrophils % 85.4 % (40.0-70.0) H 07/04/21 04:52 Seg Neutrophils # 8.6 K/mm3 (1.8-7.7) H 07/04/21 04:52 D-Dimer 308.32 ng/mlDDU (0-234) H 07/04/21 04:52 Sodium 143 mmol/L (137-145) 07/04/21 04:52 Potassium 3.5 mmol/L (3.6-5.0) L D 07/04/21 04:52 Chloride 106.5 mmol/L (98-107) 07/04/21 04:52 Carbon Dioxide 22 mmol/L (22-30) 07/04/21 04:52 Anion Gap 18 mmol/L 07/04/21 04:52 BUN 19 mg/dL (7-17) H 07/04/21 04:52 Creatinine 1.0 mg/dL (0.6-1.2) 07/04/21 04:52 Estimated GFR > 60 ml/min 07/04/21 04:52 BUN/Creatinine Ratio 19 % 07/04/21 04:52 Glucose 116 mg/dL (65-100) H 07/04/21 04:52 Lactic Acid 1.10 mmol/L (0.7-2.0) 07/02/21 17:03 Calcium 9.2 mg/dL (8.4-10.2) 07/04/21 04:52 Ferritin 877.5 ng/mL (10.0-200.0) H 07/04/21 04:52 Total Bilirubin 0.30 mg/dL (0.1-1.2) 07/04/21 04:52 AST 27 units/L (5-40) 07/04/21 04:52 ALT 20 units/L (7-56) 07/04/21 04:52 Alkaline Phosphatase 71 units/L (35-129) 07/04/21 04:52 Lactate Dehydrogenase 408 units/L (91-180) H 07/04/21 04:52 Total Creatine Kinase 360 units/L (30-135) H 07/02/21 17:03 CK-MB (CK-2) < 1.0 ng/mL (0.0-4.0) 07/02/21 17:03 CK-MB (CK-2) Rel Index 0.2 (0-4) 07/02/21 17:03 Troponin T 0.012 ng/mL (0.00-0.029) 07/02/21 17:03 C-Reactive Protein 3.10 mg/dL (0.00-1.30) H 07/04/21 04:52 Total Protein 6.8 g/dL (6.3-8.2) 07/04/21 04:52 Albumin 3.6 g/dL (3.9-5) L 07/04/21 04:52 Albumin/Globulin Ratio 1.1 % 07/04/21 04:52 Procalcitonin 0.09 ng/mL (<0.15) 07/02/21 17:03 Urine Color [place] (Yellow) 07/02/21 22:35 Urine Turbidity Slightly-cloudy (Clear) 07/02/21 22:35 Urine pH 6.0 (5.0-7.0) 07/02/21 22:35 Ur Specific [place] 1.019 (1.003-1.030) 07/02/21 22:35 Urine Protein >500 mg/dL (Negative) 07/02/21 22:35 Urine Glucose (UA) Neg mg/dL (Negative) 07/02/21 22:35 Urine Ketones 20 mg/dL (Negative) 07/02/21 22:35 Urine Blood Sm (Negative) 07/02/21 22:35 Urine Nitrite Neg (Negative) 07/02/21 22:35 Urine Bilirubin Neg (Negative) 07/02/21 22:35 Urine Urobilinogen 2.0 mg/dL (<2.0) 07/02/21 22:35 Ur Leukocyte Esterase Sm (Negative) 07/02/21 22:35 Urine WBC (Auto) 50.0 /HPF (0.0-6.0) H 07/02/21 22:35 Urine RBC (Auto) 11.0 /HPF (0.0-6.0) 07/02/21 22:35 U Epithel Cells (Auto) 46.0 /HPF (0-13.0) H 07/02/21 22:35 Urine Bacteria (Auto) 1+ /HPF (Negative) 07/02/21 22:35 Hyaline Casts 29 /LPF 07/02/21 22:35 Urine Mucus 2+ /HPF 07/02/21 22:35 Coronavirus (PCR) Positive (Negative) A 07/03/21 10:21 Microbiology: Microbiology 07/02/21 17:22 Peripheral/Venous Blood Culture - Preliminary NO GROWTH AFTER 48 HOURS 07/02/21 17:03 Peripheral/Venous Blood Culture - Preliminary NO GROWTH AFTER 48 HOURS 07/02/21 22:35 Urine,Clean Catch Urine Culture - Preliminary NO GROWTH AFTER 24 HOURS [place]/IV: Voiding Method Toilet Active Medications - Current Medications Current Medications: Generic Name Dose Route Start Last Admin Trade Name Freq PRN Reason Stop Dose Admin Acetaminophen 650 mg 07/03/21 00:33 Acetaminophen 325 Mg Tab PO Q4H PRN Pain MILD(1-3)/Fever >100.5/CARLSON Amlodipine Besylate 10 mg 07/03/21 10:00 07/04/21 10:30 Amlodipine 10 Mg Tab PO 10 mg DAILY LUPILLO Administration Azithromycin 500 mg 07/04/21 10:00 07/04/21 10:29 Azithromycin 250 Mg Tab PO 07/06/21 10:01 500 mg QDAY LUPILLO Administration Protocol Cetirizine HCl 10 mg 07/03/21 10:00 07/04/21 23:55 Cetirizine 10 Mg Tab PO 10 mg BID LUPILLO Administration Dexamethasone 8 mg 07/03/21 10:00 07/04/21 10:29 Dexamethasone 4 Mg/Ml Vial IV 07/11/21 10:01 8 mg Q24HR LUPILLO Administration Enoxaparin Sodium 40 mg 07/03/21 10:00 07/04/21 10:30 Enoxaparin 40 Mg/0.4 Ml Inj SUB-Q 40 mg QDAY LUPILLO Administration Famotidine 20 mg 07/03/21 10:00 07/04/21 23:55 Famotidine 20 Mg Tab PO 20 mg BID LUPILLO Administration Guaifenesin 10 ml 07/03/21 18:28 Guaifenesin Dm 200/20 Mg Oral Liqd 10 Ml PO Q4H PRN Cough Ceftriaxone Sodium 2 gm in 100 mls @ 200 mls/hr 07/04/21 02:00 07/05/21 02:56 Rocephin/Ns 2 Gm/100 Ml IV 07/07/21 02:29 200 mls/hr Q24H LUPILLO Administration Protocol Metoclopramide HCl 10 mg 07/03/21 00:34 Metoclopramide 10 Mg/2 Ml Inj IV Q6H PRN Nausea And Vomiting Ondansetron HCl 4 mg 07/03/21 00:33 Ondansetron 4 Mg/2 Ml Inj IV Q8H PRN Nausea And Vomiting Oxycodone/Acetaminophen 1 tab 07/03/21 00:34 Oxycodone /Acetaminophen 5-325mg Tab PO Q6H PRN Pain, Moderate (4-6) Quetiapine Fumarate 50 mg 07/03/21 10:00 07/04/21 23:56 Quetiapine 25 Mg Tab PO 50 mg BID LUPILLO Administration Sodium Chloride 10 ml 07/03/21 10:00 07/04/21 23:56 Sodium Chloride 0.9% 10 Ml Flush Syringe IV 10 ml BID LUPILLO Administration Sodium Chloride 10 ml 07/03/21 00:33 Sodium Chloride 0.9% 10 Ml Flush Syringe IV PRN PRN LINE FLUSH Trazodone HCl 50 mg 07/03/21 22:00 07/04/21 23:56 Trazodone 50 Mg Tab PO 50 mg QHS LUPILLO Administration
[2021-07-05] MEDS: dexAMETHasone 4 MG/ML VIAL IV SCH (11:48)
[2021-07-05] MEDS: ENOXAPARIN 40 MG/0.4 ML INJ SUB-Q SCH (11:48)
[2021-07-05] MEDS: amLODIPine 10 MG TAB PO SCH (11:49)
[2021-07-05] MEDS: AZITHROMYCIN 250 MG TAB PO SCH (11:49)
[2021-07-05] MEDS: CETIRIZINE 10 MG TAB PO SCH ×2 (11:49→22:31)
[2021-07-05] MEDS: QUEtiapine 25 MG TAB PO SCH ×2 (11:49→22:31)
[2021-07-05] MEDS: FAMOTIDINE 20 MG TAB PO SCH ×2 (11:50→22:31)
[2021-07-05] MEDS: traZODone 50 MG TAB PO SCH (22:31)
--- NOTE | 2021-07-06 08:19 | Discharge Summary ---
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 Patient has been having cough and shortness of breath for the last 5 days cough productive of mucoid to brown sputum. Patient also admits to body aches and runny nose. No nausea or vomiting. Patient also has Subjective fever and malaise and decreased p.o. intake for the last 2 days secondary to poor appetite. Patient is not vaccinated against COVID. No known exposure to any sick contacts. Patient is oxygen saturations were around 88% on room air in the emergency room. Improved with oxygen. Patient was placed in isolation, Salcedo PCR test was positive, started on empiric antibiotics however as procalcitonin level was low antibiotics discontinued Patient was started on steroids per protocol, due to acute kidney injury patient was not a candidate for remdesivir/ Home O2 evaluation and home O2 set up as needed Today patient is comfortable no new complaints, vital signs stable, physical examination prior to discharge is stable Advised to follow-up primary care physician in 3 to 5 days Advised to follow precautions and protocols per CDC guidelines of COVID-19 as instructed by the end discharge nurse If you have worsening symptoms contact MD or go to the nearest emergency room Advised exercise as tolerated and weight reduction Patient is stable at discharge Discharge diagnosis: --COVID-19 positive/positive salcedo PCR test Contact and respiratory isolation Patient is on 2 L of nasal cannula oxygen Inflammatory markers, steroid and no remdesivir due to LILLIE Consult ID - Acute respiratory failure with hypoxemia Current Visit: Yes Status: Acute Patient is hypoxic on room air Improved with oxygen supplementation Adjust oxygen requirements as necessary Rule out COVID-pneumonia --Systemic inflammatory response syndrome Current Visit: Yes Status: Acute All inflammatory markers including D-dimer, ferritin, CRP and LDH are elevated Clinical picture consistent with systemic inflammatory response syndrome --bilateral pneumonia Current Visit: Yes Status: Acute Treat as community-acquired pneumonia IV ceftriaxone and IV Zithromax IV Decadron 8 mg every 24 Procalcitonin is normal level DC IV antibiotics -- Hypertension Current Visit: Yes Status: Chronic Continue amlodipine and adjust medications as necessary --Schizophrenia Current Visit: No Status: Chronic Continue Seroquel --Hypokalemia Current Visit: Yes Status: Acute Supplemented recheck potassium level --LILLIE (acute kidney injury) Current Visit: Yes Status: Acute IV fluids for 12 to 18 hours Vasomotor nephropathy --Obesity; BMI 33.8 Current Visit: Yes Status: Chronic Advised dietary modification, exercise as tolerated Weight reduction when medically stable Patient verbalized understanding Home O2 evaluation. Home O2 set up as needed Patient is hemodynamically stable for discharge Disposition: HOME HEALTH CARE SERVICE Final Discharge Diagnosis (Prints w/discharge instructions): COVID-19 positive on 07/03/2021. Acute respiratory failure with hypoxia requiring 2 L of nasal cannula oxygen on admission. COVID-19 pneumonia. Hypertension. Schizophrenia. Hypokalemia resolved. Acute kidney injury present on admission. Vasomotor nephropathy/resolved. Obesity BMI 33.8 Time spent for discharge: 35 min Core Measure Documentation - Palliative Care Palliative Care/ Comfort Measures: Not Applicable - Core Measures Any of the following diagnoses?: none Exam - Constitutional Vitals: Temp Pulse Resp BP Pulse Ox 99.0 F 86 16 109/65 98 07/05/21 21:30 07/06/21 00:01 07/06/21 04:00 07/05/21 21:30 07/06/21 04:00 Plan Activity: advance as tolerated Diet: regular Additional Instructions: Advised to follow COVID-19 isolation precautions and protocols per CDC guidelines as instructed by discharge nurse. If you have worsening symptoms contact MD or go to the emergency room as needed. follow-up PMD in 3 to 5 days. Advised to follow psychiatrist per schedule Follow up with: SEGUN MENCHACA MD [Primary Care Provider] - 3-5 Days BETH MICHELLE MD [Staff Physician] - 7 Days Prescriptions: amLODIPine 10 mg PO DAILY #30 traZODone [Desyrel] 50 mg PO QHS #14 tablet guaiFENesin DM [Guaifenesin Dm Syrup] 10 ml PO Q4H PRN 10 Days #1 bottle PRN Reason: Cough Famotidine [Pepcid] 20 mg PO BID #20 tablet oxyCODONE /ACETAMINOPHEN [Percocet 5/325 mg] 1 tab PO QHS PRN #7 tablet PRN Reason: Pain, Moderate (4-6) QUEtiapine [SEROquel] 50 mg PO BID #30 tablet Ascorbic Acid [Vitamin C chew] 500 mg PO BID #30 Cholecalciferol Vit D3 [Vitamin D3 1,000 UNIT TAB] 1,000 unit PO QDAY #15 tablet Zinc Sulfate 1 cap PO BID #30 capsule
[2021-07-06] MEDS: ENOXAPARIN 40 MG/0.4 ML INJ SUB-Q SCH (11:32)
[2021-07-06] MEDS: dexAMETHasone 4 MG/ML VIAL IV SCH (11:33)
[2021-07-06] MEDS: CETIRIZINE 10 MG TAB PO SCH ×2 (11:34→21:24)
[2021-07-06] MEDS: QUEtiapine 25 MG TAB PO SCH ×2 (11:34→21:23)
[2021-07-06] MEDS: amLODIPine 10 MG TAB PO SCH (11:35)
[2021-07-06] MEDS: FAMOTIDINE 20 MG TAB PO SCH ×2 (11:35→21:23)
--- NOTE | 2021-07-06 19:20 | Progress Note ---
Assessment and Plan Assessment and plan: --COVID-19 positive/positive salcedo PCR test Contact and respiratory isolation Patient is on 2 L of nasal cannula oxygen Inflammatory markers, steroid and no remdesivir due to LILLIE Consult ID --PUI/high suspicion for COVID-19 Isolation precautions Salcedo PCR test requested Continue oxygen support - Acute respiratory failure with hypoxemia Current Visit: Yes Status: Acute Patient is hypoxic on room air Improved with oxygen supplementation Adjust oxygen requirements as necessary Rule out COVID-pneumonia --Systemic inflammatory response syndrome Current Visit: Yes Status: Acute All inflammatory markers including D-dimer, ferritin, CRP and LDH are elevated Clinical picture consistent with systemic inflammatory response syndrome --bilateral pneumonia Current Visit: Yes Status: Acute Treat as community-acquired pneumonia IV ceftriaxone and IV Zithromax IV Decadron 8 mg every 24 Procalcitonin is normal level DC IV antibiotics -- Suspected COVID-19 virus infection Current Visit: Yes Status: Acute Coronavirus PCR in a.m. IV Decadron for now ID consult if necessary -- Hypertension Current Visit: Yes Status: Chronic Continue amlodipine and adjust medications as necessary --Schizophrenia Current Visit: No Status: Chronic Continue Seroquel --Hypokalemia Current Visit: Yes Status: Acute Supplemented recheck potassium level --LILLIE (acute kidney injury) Current Visit: Yes Status: Acute IV fluids for 12 to 18 hours Vasomotor nephropathy --Obesity; BMI 33.8 Current Visit: Yes Status: Chronic Advised dietary modification, exercise as tolerated Weight reduction when medically stable Patient verbalized understanding - DVT prophylaxis Current Visit: Yes Status: Acute On anticoagulation and GI prophylaxis Monitor patient and adjust management as needed Plan of care reviewed with the patient and her nurse 07/04/2021; patient is on 2 L of nasal cannula oxygen On steroids. No remdesivir patient has acute kidney injury, obese BMI 33.8 Wean as tolerated, home oxygen evaluation, prone positioning 07/05/2021; walk test, possible discharge home tomorrow With home oxygen if needed, ambulate as tolerated 07/06/2021; patient needs home oxygen, case management processing the request Possible discharge tomorrow if O2 is arranged and if patient is stable History Interval history: I have seen and examined the patient at the bedside Patient's chart and medications reviewed Patient complains of shortness of breath, requires home O2 Case management processing the request Hospitalist Physical - Constitutional Vitals: Temp Pulse Resp BP Pulse Ox 97.7 F 71 18 143/69 93 07/06/21 17:17 07/06/21 17:17 07/06/21 17:17 07/06/21 17:17 07/06/21 17:17 General appearance: Present: mild distress, well-nourished - EENT Eyes: Present: PERRL, EOM intact - Neck Neck: Present: supple, normal ROM - Respiratory Respiratory effort: normal Respiratory: bilateral: diminished, negative: rales, rhonchi, wheezing - Cardiovascular Rhythm: regular Heart Sounds: Present: S1 & S2 - Extremities Extremities: no ischemia, No edema - Abdominal General gastrointestinal: soft, non-tender, non-distended, normal bowel sounds - Integumentary Integumentary: Present: clear, warm - Psychiatric Psychiatric: appropriate mood/affect, cooperative - Neurologic Neurologic: CNII-XII intact, moves all extremities HEART Score - HEART Score Troponin: Troponin T 0.012 ng/mL (0.00-0.029) 07/02/21 17:03 Results - Labs CBC & Chem 7: 07/04/21 04:52 07/04/21 04:52 Labs: Laboratory Last Values WBC 10.1 K/mm3 (4.5-11.0) 07/04/21 04:52 RBC 4.41 M/mm3 (3.65-5.03) 07/04/21 04:52 Hgb 13.0 gm/dl (10.1-14.3) 07/04/21 04:52 Hct 39.7 % (30.3-42.9) 07/04/21 04:52 MCV 90 fl (79-97) 07/04/21 04:52 MCH 30 pg (28-32) 07/04/21 04:52 MCHC 33 % (30-34) 07/04/21 04:52 RDW 14.3 % (13.2-15.2) 07/04/21 04:52 Plt Count 262 K/mm3 (140-440) 07/04/21 04:52 Lymph % (Auto) 9.0 % (13.4-35.0) L 07/04/21 04:52 Sac % (Auto) 5.2 % (0.0-7.3) 07/04/21 04:52 Eos % (Auto) 0.0 % (0.0-4.3) 07/04/21 04:52 Baso % (Auto) 0.4 % (0.0-1.8) 07/04/21 04:52 Lymph # (Auto) 0.9 K/mm3 (1.2-5.4) L 07/04/21 04:52 Sac # (Auto) 0.5 K/mm3 (0.0-0.8) 07/04/21 04:52 Eos # (Auto) 0.0 K/mm3 (0.0-0.4) 07/04/21 04:52 Baso # (Auto) 0.0 K/mm3 (0.0-0.1) 07/04/21 04:52 Seg Neutrophils % 85.4 % (40.0-70.0) H 07/04/21 04:52 Seg Neutrophils # 8.6 K/mm3 (1.8-7.7) H 07/04/21 04:52 D-Dimer 308.32 ng/mlDDU (0-234) H 07/04/21 04:52 Sodium 143 mmol/L (137-145) 07/04/21 04:52 Potassium 3.5 mmol/L (3.6-5.0) L D 07/04/21 04:52 Chloride 106.5 mmol/L (98-107) 07/04/21 04:52 Carbon Dioxide 22 mmol/L (22-30) 07/04/21 04:52 Anion Gap 18 mmol/L 07/04/21 04:52 BUN 19 mg/dL (7-17) H 07/04/21 04:52 Creatinine 1.0 mg/dL (0.6-1.2) 07/04/21 04:52 Estimated GFR > 60 ml/min 07/04/21 04:52 BUN/Creatinine Ratio 19 % 07/04/21 04:52 Glucose 116 mg/dL (65-100) H 07/04/21 04:52 POC Glucose 143 mg/dL (70-105) H 07/05/21 15:47 Lactic Acid 1.10 mmol/L (0.7-2.0) 07/02/21 17:03 Calcium 9.2 mg/dL (8.4-10.2) 07/04/21 04:52 Ferritin 877.5 ng/mL (10.0-200.0) H 07/04/21 04:52 Total Bilirubin 0.30 mg/dL (0.1-1.2) 07/04/21 04:52 AST 27 units/L (5-40) 07/04/21 04:52 ALT 20 units/L (7-56) 07/04/21 04:52 Alkaline Phosphatase 71 units/L (35-129) 07/04/21 04:52 Lactate Dehydrogenase 408 units/L (91-180) H 07/04/21 04:52 Total Creatine Kinase 360 units/L (30-135) H 07/02/21 17:03 CK-MB (CK-2) < 1.0 ng/mL (0.0-4.0) 07/02/21 17:03 CK-MB (CK-2) Rel Index 0.2 (0-4) 07/02/21 17:03 Troponin T 0.012 ng/mL (0.00-0.029) 07/02/21 17:03 C-Reactive Protein 3.10 mg/dL (0.00-1.30) H 07/04/21 04:52 Total Protein 6.8 g/dL (6.3-8.2) 07/04/21 04:52 Albumin 3.6 g/dL (3.9-5) L 07/04/21 04:52 Albumin/Globulin Ratio 1.1 % 07/04/21 04:52 Procalcitonin 0.09 ng/mL (<0.15) 07/02/21 17:03 Urine Color [place] (Yellow) 07/02/21 22:35 Urine Turbidity Slightly-cloudy (Clear) 07/02/21 22:35 Urine pH 6.0 (5.0-7.0) 07/02/21 22:35 Ur Specific [place] 1.019 (1.003-1.030) 07/02/21 22:35 Urine Protein >500 mg/dL (Negative) 07/02/21 22:35 Urine Glucose (UA) Neg mg/dL (Negative) 07/02/21 22:35 Urine Ketones 20 mg/dL (Negative) 07/02/21 22:35 Urine Blood Sm (Negative) 07/02/21 22:35 Urine Nitrite Neg (Negative) 07/02/21 22:35 Urine Bilirubin Neg (Negative) 07/02/21 22:35 Urine Urobilinogen 2.0 mg/dL (<2.0) 07/02/21 22:35 Ur Leukocyte Esterase Sm (Negative) 07/02/21 22:35 Urine WBC (Auto) 50.0 /HPF (0.0-6.0) H 07/02/21 22:35 Urine RBC (Auto) 11.0 /HPF (0.0-6.0) 07/02/21 22:35 U Epithel Cells (Auto) 46.0 /HPF (0-13.0) H 07/02/21 22:35 Urine Bacteria (Auto) 1+ /HPF (Negative) 07/02/21 22:35 Hyaline Casts 29 /LPF 07/02/21 22:35 Urine Mucus 2+ /HPF 07/02/21 22:35 Coronavirus (PCR) Positive (Negative) A 07/03/21 10:21 Microbiology: Microbiology 07/02/21 22:35 Urine,Clean Catch Urine Culture - Final 07/02/21 17:22 Peripheral/Venous Blood Culture - Preliminary NO GROWTH AFTER 72 HOURS 07/02/21 17:03 Peripheral/Venous Blood Culture - Preliminary NO GROWTH AFTER 72 HOURS Cuellar/IV: Voiding Method Incontinent Active Medications - Current Medications Current Medications: Generic Name Dose Route Start Last Admin Trade Name Freq PRN Reason Stop Dose Admin Acetaminophen 650 mg 07/03/21 00:33 Acetaminophen 325 Mg Tab PO Q4H PRN Pain MILD(1-3)/Fever >100.5/CARLSON Amlodipine Besylate 10 mg 07/03/21 10:00 07/06/21 11:35 Amlodipine 10 Mg Tab PO 10 mg DAILY LUPILLO Administration Cetirizine HCl 10 mg 07/03/21 10:00 07/06/21 11:34 Cetirizine 10 Mg Tab PO 10 mg BID LUPILLO Administration Dexamethasone 8 mg 07/03/21 10:00 07/06/21 11:33 Dexamethasone 4 Mg/Ml Vial IV 07/11/21 10:01 8 mg Q24HR LUPILLO Administration Enoxaparin Sodium 40 mg 07/03/21 10:00 07/06/21 11:32 Enoxaparin 40 Mg/0.4 Ml Inj SUB-Q 40 mg QDAY LUPILLO Administration Famotidine 20 mg 07/03/21 10:00 07/06/21 11:35 Famotidine 20 Mg Tab PO 20 mg BID LUPILLO Administration Guaifenesin 10 ml 07/03/21 18:28 Guaifenesin Dm 200/20 Mg Oral Liqd 10 Ml PO Q4H PRN Cough Metoclopramide HCl 10 mg 07/03/21 00:34 Metoclopramide 10 Mg/2 Ml Inj IV Q6H PRN Nausea And Vomiting Ondansetron HCl 4 mg 07/03/21 00:33 Ondansetron 4 Mg/2 Ml Inj IV Q8H PRN Nausea And Vomiting Oxycodone/Acetaminophen 1 tab 07/03/21 00:34 Oxycodone /Acetaminophen 5-325mg Tab PO Q6H PRN Pain, Moderate (4-6) Quetiapine Fumarate 50 mg 07/03/21 10:00 07/06/21 11:34 Quetiapine 25 Mg Tab PO 50 mg BID LUPILLO Administration Sodium Chloride 10 ml 07/03/21 10:00 07/06/21 11:32 Sodium Chloride 0.9% 10 Ml Flush Syringe IV 10 ml BID LUPILLO Administration Sodium Chloride 10 ml 07/03/21 00:33 Sodium Chloride 0.9% 10 Ml Flush Syringe IV PRN PRN LINE FLUSH Trazodone HCl 50 mg 07/03/21 22:00 07/05/21 22:31 Trazodone 50 Mg Tab PO 50 mg QHS LUPILLO Administration Nutrition/Malnutrition Assess - Dietary Evaluation Nutrition/Malnutrition Findings: Nutrition Notes Start: 07/06/21 11:24 Freq: Status: Active Protocol: Document 07/06/21 11:24 TAIWO (Rec: 07/06/21 11:48 TAIWO [id number]) Nutrition Notes Need for Assessment generated from: MD Order Initial or Follow up Assessment Current Diagnosis Acute Kidney Injury, Hypertension,Respiratory Failure Other Pertinent Diagnosis COVID-19, Bilateral Pneumonia, SIRS, Hypokalemia, Schizophrenia. Current Diet Regular Diet (since B 07/05). Labs/Tests 07/04: K 3.5, BUN 19, Glu 116. Pertinent Medications 07/06: Nutritionally unremarkable. Height 5 ft 7 in Weight 97.976 kg [place] Body Weight (kg) 61.36 BMI 33.8 Intake Prior to Admission Poor Weight change and time frame Pt reported not having loss body weight recently. Weight Status Obese Subjective/Other Information RD consult for Dietary supplements assessment. Pt's PO intake of meals has been Good (100%), according to ADL notes. Dietary Supplements discontinued. Pt ready to be discharged today. Percent of energy/protein needs met: Prescribed Regular Diet provides for energy/protein needs (2,289 Kcal/89 g) during LOS. Burn Absent Trauma Absent GI Symptoms None Food Allergy No Skin Integrity/Comment Clear, warm, dry. Current % PO Good (75-100%) Minimum of two criteria No Is patient on ventilator? No Is Patient Ambulatory and/or Out of Bed Yes REE-([facility] [place]-ambulatory/OOB) [ 2030.107 NUTR.[id number]] Kcal/Kg value to use for calculation 11 Approximate Energy Requirements Using 1078 kcal/Kg Calculation Used for Recommendations Kcal/kg Additional Notes Protein: 0.8-1 g/Kg; 64-80 g/ day. Fluids: 1 ml/Kcal, or as per MD. Nutrition Intervention Change Diet Order: Continue Regular Diet. Follow-Up By: 07/13/21 Additional Comments Continue monitoring food tolerance, %PO intake of meals , and BM.
[2021-07-06] MEDS: traZODone 50 MG TAB PO SCH (21:24)
[2021-07-07] MEDS: ENOXAPARIN 40 MG/0.4 ML INJ SUB-Q SCH (11:28)
[2021-07-07] MEDS: dexAMETHasone 4 MG/ML VIAL IV SCH (11:28)
[2021-07-07] MEDS: FAMOTIDINE 20 MG TAB PO SCH ×2 (11:28→21:32)
[2021-07-07] MEDS: amLODIPine 10 MG TAB PO SCH (11:29)
[2021-07-07] MEDS: CETIRIZINE 10 MG TAB PO SCH ×2 (11:29→21:32)
[2021-07-07] MEDS: QUEtiapine 25 MG TAB PO SCH ×2 (11:30→21:32)
[2021-07-07] MEDS: traZODone 50 MG TAB PO SCH (21:32)
--- NOTE | 2021-07-08 08:42 | Progress Note ---
Assessment and Plan Assessment and plan: --COVID-19 positive/positive salcedo PCR test Contact and respiratory isolation Patient is on 2 L of nasal cannula oxygen Inflammatory markers, steroid and no remdesivir due to LILLIE Consult ID --PUI/high suspicion for COVID-19 Isolation precautions Salcedo PCR test requested Continue oxygen support - Acute respiratory failure with hypoxemia Current Visit: Yes Status: Acute Patient is hypoxic on room air Improved with oxygen supplementation Adjust oxygen requirements as necessary Rule out COVID-pneumonia --Systemic inflammatory response syndrome Current Visit: Yes Status: Acute All inflammatory markers including D-dimer, ferritin, CRP and LDH are elevated Clinical picture consistent with systemic inflammatory response syndrome --bilateral pneumonia Current Visit: Yes Status: Acute Treat as community-acquired pneumonia IV ceftriaxone and IV Zithromax IV Decadron 8 mg every 24 Procalcitonin is normal level DC IV antibiotics -- Suspected COVID-19 virus infection Current Visit: Yes Status: Acute Coronavirus PCR in a.m. IV Decadron for now ID consult if necessary -- Hypertension Current Visit: Yes Status: Chronic Continue amlodipine and adjust medications as necessary --Schizophrenia Current Visit: No Status: Chronic Continue Seroquel --Hypokalemia Current Visit: Yes Status: Acute Supplemented recheck potassium level --LILLIE (acute kidney injury) Current Visit: Yes Status: Acute IV fluids for 12 to 18 hours Vasomotor nephropathy --Obesity; BMI 33.8 Current Visit: Yes Status: Chronic Advised dietary modification, exercise as tolerated Weight reduction when medically stable Patient verbalized understanding - DVT prophylaxis Current Visit: Yes Status: Acute On anticoagulation and GI prophylaxis Monitor patient and adjust management as needed Plan of care reviewed with the patient and her nurse 07/04/2021; patient is on 2 L of nasal cannula oxygen On steroids. No remdesivir patient has acute kidney injury, obese BMI 33.8 Wean as tolerated, home oxygen evaluation, prone positioning 07/05/2021; walk test, possible discharge home tomorrow With home oxygen if needed, ambulate as tolerated 07/06/2021; patient needs home oxygen, case management processing the request Possible discharge tomorrow if O2 is arranged and if patient is stable Hospitalist Physical - Constitutional Vitals: Temp Pulse Resp BP Pulse Ox 97.5 F L 54 L 18 142/75 94 07/08/21 05:45 07/08/21 05:45 07/08/21 05:45 07/08/21 05:45 07/08/21 05:45 General appearance: Present: mild distress, well-nourished HEART Score - HEART Score Troponin: Troponin T 0.012 ng/mL (0.00-0.029) 07/02/21 17:03 Results - Labs CBC & Chem 7: 07/04/21 04:52 07/04/21 04:52 Labs: Laboratory Last Values WBC 10.1 K/mm3 (4.5-11.0) 07/04/21 04:52 RBC 4.41 M/mm3 (3.65-5.03) 07/04/21 04:52 Hgb 13.0 gm/dl (10.1-14.3) 07/04/21 04:52 Hct 39.7 % (30.3-42.9) 07/04/21 04:52 MCV 90 fl (79-97) 07/04/21 04:52 MCH 30 pg (28-32) 07/04/21 04:52 MCHC 33 % (30-34) 07/04/21 04:52 RDW 14.3 % (13.2-15.2) 07/04/21 04:52 Plt Count 262 K/mm3 (140-440) 07/04/21 04:52 Lymph % (Auto) 9.0 % (13.4-35.0) L 07/04/21 04:52 [place] % (Auto) 5.2 % (0.0-7.3) 07/04/21 04:52 Eos % (Auto) 0.0 % (0.0-4.3) 07/04/21 04:52 Baso % (Auto) 0.4 % (0.0-1.8) 07/04/21 04:52 Lymph # (Auto) 0.9 K/mm3 (1.2-5.4) L 07/04/21 04:52 [place] # (Auto) 0.5 K/mm3 (0.0-0.8) 07/04/21 04:52 Eos # (Auto) 0.0 K/mm3 (0.0-0.4) 07/04/21 04:52 Baso # (Auto) 0.0 K/mm3 (0.0-0.1) 07/04/21 04:52 Seg Neutrophils % 85.4 % (40.0-70.0) H 07/04/21 04:52 Seg Neutrophils # 8.6 K/mm3 (1.8-7.7) H 07/04/21 04:52 D-Dimer 308.32 ng/mlDDU (0-234) H 07/04/21 04:52 Sodium 143 mmol/L (137-145) 07/04/21 04:52 Potassium 3.5 mmol/L (3.6-5.0) L D 07/04/21 04:52 Chloride 106.5 mmol/L (98-107) 07/04/21 04:52 Carbon Dioxide 22 mmol/L (22-30) 07/04/21 04:52 Anion Gap 18 mmol/L 07/04/21 04:52 BUN 19 mg/dL (7-17) H 07/04/21 04:52 Creatinine 1.0 mg/dL (0.6-1.2) 07/04/21 04:52 Estimated GFR > 60 ml/min 07/04/21 04:52 BUN/Creatinine Ratio 19 % 07/04/21 04:52 Glucose 116 mg/dL (65-100) H 07/04/21 04:52 POC Glucose 143 mg/dL (70-105) H 07/05/21 15:47 Lactic Acid 1.10 mmol/L (0.7-2.0) 07/02/21 17:03 Calcium 9.2 mg/dL (8.4-10.2) 07/04/21 04:52 Ferritin 877.5 ng/mL (10.0-200.0) H 07/04/21 04:52 Total Bilirubin 0.30 mg/dL (0.1-1.2) 07/04/21 04:52 AST 27 units/L (5-40) 07/04/21 04:52 ALT 20 units/L (7-56) 07/04/21 04:52 Alkaline Phosphatase 71 units/L (35-129) 07/04/21 04:52 Lactate Dehydrogenase 408 units/L (91-180) H 07/04/21 04:52 Total Creatine Kinase 360 units/L (30-135) H 07/02/21 17:03 CK-MB (CK-2) < 1.0 ng/mL (0.0-4.0) 07/02/21 17:03 CK-MB (CK-2) Rel Index 0.2 (0-4) 07/02/21 17:03 Troponin T 0.012 ng/mL (0.00-0.029) 07/02/21 17:03 C-Reactive Protein 3.10 mg/dL (0.00-1.30) H 07/04/21 04:52 Total Protein 6.8 g/dL (6.3-8.2) 07/04/21 04:52 Albumin 3.6 g/dL (3.9-5) L 07/04/21 04:52 Albumin/Globulin Ratio 1.1 % 07/04/21 04:52 Procalcitonin 0.09 ng/mL (<0.15) 07/02/21 17:03 Urine Color [place] (Yellow) 07/02/21 22:35 Urine Turbidity Slightly-cloudy (Clear) 07/02/21 22:35 Urine pH 6.0 (5.0-7.0) 07/02/21 22:35 Ur Specific [place] 1.019 (1.003-1.030) 07/02/21 22:35 Urine Protein >500 mg/dL (Negative) 07/02/21 22:35 Urine Glucose (UA) Neg mg/dL (Negative) 07/02/21: Urine Ketones 20 mg/dL (Negative) 07/02/21 22:35 Urine Blood Sm (Negative) 07/02/21 22:35 Urine Nitrite Neg (Negative) 07/02/21 22: Urine Bilirubin Neg (Negative) 07/02/21 22:35 Urine Urobilinogen 2.0 mg/dL (<2.0) 07/02/21 22:35 Ur Leukocyte Esterase Sm (Negative) 07/02/21 22:35 Urine WBC (Auto) 50.0 /HPF (0.0-6.0) H 07/02/21 22:35 Urine RBC (Auto) 11.0 /HPF (0.0-6.0) 07/02/21 22:35 U Epithel Cells (Auto) 46.0 /HPF (0-13.0) H 07/02/21 22:35 Urine Bacteria (Auto) 1+ /HPF (Negative) 07/02/21 22:35 Hyaline Casts 29 /LPF 07/02/21 22:35 Urine Mucus 2+ /HPF 07/02/21 22:35 Coronavirus (PCR) Positive (Negative) A 07/03/21 10:21 Microbiology: Microbiology 07/02/21 17:22 Peripheral/Venous Blood Culture - Final NO GROWTH AFTER 5 DAYS 07/02/21 17:03 Peripheral/Venous Blood Culture - Final NO GROWTH AFTER 5 DAYS Cuellar/IV: Voiding Method Toilet Active Medications - Current Medications Current Medications: Generic Name Dose Route Start Last Admin Trade Name Freq PRN Reason Stop Dose Admin Acetaminophen 650 mg 07/03/21 00:33 07/07/21 04:15 Acetaminophen 325 Mg Tab PO 650 mg Q4H PRN Administration Pain MILD(1-3)/Fever >100.5/CARLSON Amlodipine Besylate 10 mg 07/03/21 10:00 07/07/21 11:29 Amlodipine 10 Mg Tab PO 10 mg DAILY LUPILLO Administration Cetirizine HCl 10 mg 07/03/21 10:00 07/07/21 21:32 Cetirizine 10 Mg Tab PO 10 mg BID LUPILLO Administration Dexamethasone 8 mg 07/08/21 10:00 Dexamethasone 4 Mg Tab PO 07/11/21 10:59 DAILY LUPILLO Enoxaparin Sodium 40 mg 07/03/21 10:00 07/07/21 11:28 Enoxaparin 40 Mg/0.4 Ml Inj SUB-Q 40 mg QDAY LUPILLO Administration Famotidine 20 mg 07/03/21 10:00 07/07/21 21:32 Famotidine 20 Mg Tab PO 20 mg BID LUPILLO Administration Guaifenesin 10 ml 07/03/21 18:28 Guaifenesin Dm 200/20 Mg Oral Liqd 10 Ml PO Q4H PRN Cough Metoclopramide HCl 10 mg 07/03/21 00:34 Metoclopramide 10 Mg/2 Ml Inj IV Q6H PRN Nausea And Vomiting Ondansetron HCl 4 mg 07/03/21 00:33 Ondansetron 4 Mg/2 Ml Inj IV Q8H PRN Nausea And Vomiting Oxycodone/Acetaminophen 1 tab 07/03/21 00:34 Oxycodone /Acetaminophen 5-325mg Tab PO Q6H PRN Pain, Moderate (4-6) Quetiapine Fumarate 50 mg 07/03/21 10:00 07/07/21 21:32 Quetiapine 25 Mg Tab PO 50 mg BID LUPILLO Administration Sodium Chloride 10 ml 07/03/21 10:00 07/07/21 21:32 Sodium Chloride 0.9% 10 Ml Flush Syringe IV 10 ml BID LUPILLO Administration Sodium Chloride 10 ml 07/03/21 00:33 Sodium Chloride 0.9% 10 Ml Flush Syringe IV PRN PRN LINE FLUSH Trazodone HCl 50 mg 07/03/21 22:00 07/07/21 21:32 Trazodone 50 Mg Tab PO 50 mg QHS LUPILLO Administration Nutrition/Malnutrition Assess - Dietary Evaluation Nutrition/Malnutrition Findings: Nutrition Notes Start: 07/06/21 11:24 Freq: Status: Active Protocol: Document 07/06/21 11:24 TAIWO (Rec: 07/06/21 11:48 TAIWO [id number]) Nutrition Notes Need for Assessment generated from: MD Order Initial or Follow up Assessment Current Diagnosis Acute Kidney Injury, Hypertension,Respiratory Failure Other Pertinent Diagnosis COVID-19, Bilateral Pneumonia, SIRS, Hypokalemia, Schizophrenia. Current Diet Regular Diet (since B 07/05). Labs/Tests 07/04: K 3.5, BUN 19, Glu 116. Pertinent Medications 07/06: Nutritionally unremarkable. Height 5 ft 7 in Weight 97.976 kg [place] Body Weight (kg) 61.36 BMI 33.8 Intake Prior to Admission Poor Weight change and time frame Pt reported not having loss body weight recently. Weight Status Obese Subjective/Other Information RD consult for Dietary supplements assessment. Pt's PO intake of meals has been Good (100%), according to ADL notes. Dietary Supplements discontinued. Pt ready to be discharged today. Percent of energy/protein needs met: Prescribed Regular Diet provides for energy/protein needs (2,289 Kcal/89 g) during LOS. Burn Absent Trauma Absent GI Symptoms None Food Allergy No Skin Integrity/Comment Clear, warm, dry. Current % PO Good (75-100%) Minimum of two criteria No Is patient on ventilator? No Is Patient Ambulatory and/or Out of Bed Yes REE-([place] or-ambulatory/OOB) [ 2030.107 NUTR.MSJOOB] Kcal/Kg value to use for calculation 11 Approximate Energy Requirements Using 1078 kcal/Kg Calculation Used for Recommendations Kcal/kg Additional Notes Protein: 0.8-1 g/Kg; 64-80 g/ day. Fluids: 1 ml/Kcal, or as per MD. Nutrition Intervention Change Diet Order: Continue Regular Diet. Follow-Up By: 07/13/21 Additional Comments Continue monitoring food tolerance, %PO intake of meals , and BM.
--- NOTE | 2021-07-08 08:43 | Event Note ---
Date: 07/08/21 Patient was discharged yesterday, due to social reasons could not leave Patient is hemodynamically and clinically stable at discharge, CM arranged home oxygen
[2021-07-08] MEDS ORDERED: DEXAMETHASONE 4 MG TAB PO SCH (10:00)
[2021-07-08] MEDS: amLODIPine 10 MG TAB PO SCH (10:24)
[2021-07-08] MEDS: ENOXAPARIN 40 MG/0.4 ML INJ SUB-Q SCH (10:24)
[2021-07-08] MEDS: FAMOTIDINE 20 MG TAB PO SCH (10:24)
[2021-07-08] MEDS: QUEtiapine 25 MG TAB PO SCH (10:25)
[2021-07-08] MEDS: CETIRIZINE 10 MG TAB PO SCH (10:25)
[2021-07-08 11:54] VITALS: BP 125/61
== END 2021-07-08 14:00 | disposition home or self-care (01) | DRG 177 ==
LOC: ED 14:55 → 3A 19:00
PROVIDERS: ADMIT Internal Medicine; ATTEND Internal Medicine
DX: U07.1 COVID-19 (principal); J96.01 Acute respiratory failure with hypoxia; N17.0 Acute kidney failure with tubular necrosis; J12.82 Pneumonia due to coronavirus disease 2019; R65.10 Systemic inflammatory response syndrome (SIRS) of non-infectious origin without acute organ dysfunction; Z87.891 Personal history of nicotine dependence; F20.9 Schizophrenia, unspecified; E87.6 Hypokalemia; E66.9 Obesity, unspecified; Z68.33 Body mass index [BMI] 33.0-33.9, adult
CPT/HCPCS: 36415; 71045; 80048; 80053; 81001; 82140; 82550; 82553; 82728; 82962; 83615; 84145; 84484; 85025; 85379; 86140; 87040; 87086; 93005; 94760; G0378; Q0162; J0456; J0696; J1100; J1650; J7030; J8540; U0003